=== PATIENT | female | born 1995 | race Caucasian/White ===

== ENCOUNTER 2023-08-21 12:50 | Emergency (ER) | payer OTHER ==
[~2023-08-21] VITALS: Ht 167.6 cm; Wt 72.6 kg
[2023-08-21] MEDS ORDERED: KETO10TA2 PO (17:38)
== END 2023-08-21 17:56 ==
LOC: ER 12:50
DX: S82.61XA Displaced fracture of lateral malleolus of right fibula, initial encounter for closed fracture (principal); W18.30XA Fall on same level, unspecified, initial encounter; Y93.9 Activity, unspecified; Y92.821 Forest as the place of occurrence of the external cause; Y99.9 Unspecified external cause status